=== PATIENT | male | born 1985 | race Hispanic/Latino ===

== ENCOUNTER 2018-06-12 03:34 | Emergency (ER) | payer SELFPAY ==
[2018-06-12] MEDS ORDERED: ERYTHROMYCIN BASE 0.5% OPHTH OINT 1 GM TUBE ONE (04:15)
== END 2018-06-12 04:35 | disposition home or self-care (01) ==
LOC: EDH 03:34
DX: H01.003 Unspecified blepharitis right eye, unspecified eyelid (principal); H10.9 Unspecified conjunctivitis; J45.909 Unspecified asthma, uncomplicated

== ENCOUNTER 2021-09-26 11:44 | Emergency (ER) | payer BC ==
[~2021-09-26] VITALS: Ht 172.7 cm; Wt 110.2 kg
[2021-09-26] MEDS ORDERED: FLUORESCEIN SODIUM 1 STRIP STRIP OP SCH (13:00)
[2021-09-26] MEDS ORDERED: TETRACAINE HCL 0.5% 4 ML OPHTH SOLN OP SCH (13:00)
[2021-09-26] MEDS ORDERED: NA BORATE/BORIC AC/H2O/NACL 120 ML OPHTH IRRIG SOLN OP SCH (13:00)
[2021-09-26 13:15] VITALS: BP 101/59
[2021-09-26] MEDS ORDERED: ERYT1OIN7 OP (13:55)
[2021-09-26] MEDS ORDERED: ERYTHROMYCIN BASE 0.5% OPHTH OINT 1 GM TUBE OU SCH (14:00)
== END 2021-09-26 14:13 | disposition home or self-care (01) ==
LOC: EDH 11:44
DX: H57.12 Ocular pain, left eye (principal); H57.89 Other specified disorders of eye and adnexa; H53.149 Visual discomfort, unspecified